=== PATIENT | male | born 1935 | race Caucasian/White ===

== ENCOUNTER 2019-12-21 19:49 | Emergency (ER) | payer MEDICARE ==
[~2019-12-21] VITALS: Ht 170.2 cm; Wt 81.7 kg
[2019-12-21] MEDS ORDERED: Aspir 8181 MG PO (22:00)
[2019-12-21] MEDS ORDERED: GABA300 PO (22:04)
[2019-12-21] MEDS ORDERED: METO100 PO (22:05)
[2019-12-21] MEDS ORDERED: Coumadin2 MG PO (22:06)
[2019-12-21 23:16] LABS: Source, Urine Clean Catch
[2019-12-21 23:37] LABS: Blood, Urine 5+ (Neg); Glucose Qualitative, Urine Neg (Neg); Ketones, Urine 2+ (Neg); Leukocyte Esterase, Urine 2+ (Neg); Nitrite, Urine Pos (Neg); Protein, Urine 2+ (Neg); Urobilinogen, Urine 1+ (Normal)
[2019-12-21 23:46] LABS: Bilirubin, Urine 1+ (Neg)
[2019-12-21 23:47] LABS: Appearance, Urine Hazy (Clear); Color, Urine Yellow (P-Yellow)
[2019-12-21 23:49] LABS: Bacteria Mod /hpf; Mucus Light (0-Heavy); Red Blood Cells, Urine 50-100 /hpf (0-2); Squamous Epithelial Cells Few /hpf (Few)
[2019-12-22] MEDS ORDERED: CEFP200 PO (00:01)
== END 2019-12-22 00:45 | disposition home or self-care (01) ==
LOC: ER 19:49
PROVIDERS: Emergency Medicine
DX: N39.0 Urinary tract infection, site not specified (principal); D72.829 Elevated white blood cell count, unspecified; R79.89 Other specified abnormal findings of blood chemistry; N40.0 Benign prostatic hyperplasia without lower urinary tract symptoms; Z79.82 Long term (current) use of aspirin
CPT/HCPCS: 36415; 71046; 81001; 84484; 87086; 93005; 93010; 96365; 99285-25; J0696

== ENCOUNTER → 2019-12-21 | Outpatient (CLI) | payer MEDICARE ==
[~2019-12-21] MED LIST: Aspir 8181 MG PO; CEFP200 PO; Coumadin2 MG PO; GABA300 PO; METO100 PO
[2019-12-21 18:51] LABS: BASOPHILS ABSOLUTE AUTO 0.03 K/mm3 (0.00-0.23); BASOPHILS PERCENT AUTO 0 % (0-2); EOSINOPHILS ABSOLUTE AUTO 0.14 K/mm3 (0.00-0.68); EOSINOPHILS PERCENT AUTO 1 % (0-6); Hematocrit 36.8 % (37.0-53.0); Hemoglobin 12.5 g/dL (13.5-17.5); IMMATURE GRAN ABSOLUTE AUTO 0.06 K/mm3 (0.00-0.10); IMMATURE GRAN PERCENT AUTO 0 % (0-1); LYMPHOCYTES ABSOLUTE AUTO 1.82 K/mm3 (0.84-5.20); LYMPHOCYTES PERCENT AUTO 13 % (21-46); MONOCYTES ABSOLUTE AUTO 0.97 K/mm3 (0.16-1.47); MONOCYTES PERCENT AUTO 7 % (4-13); Mean Corpuscular HGB 31.8 pg (26.0-34.0); Mean Corpuscular Volume 94 fL (80-100); Mean Platelet Volume 10.7 fL (9.1-12.4); NEUTROPHILS ABSOLUTE AUTO 11.58 K/mm3 (1.96-9.15); NEUTROPHILS PERCENT AUTO 79 % (41-73); Platelet Count 193 K/mm3 (150-400); RDW Standard Deviation 47.6 fL (35.1-46.3); Red Blood Cell Count 3.93 M/mm3 (4.30-5.90)
[2019-12-21 19:01] LABS: Albumin, Blood 3.9 g/dL (3.4-5.0); Bilirubin, Total 0.9 mg/dL (0.1-1.0); Bun/Creatinine Ratio 12.3 (12.0-20.0); Calcium, Blood 8.6 mg/dL (8.5-10.1); Creatinine, Blood 1.54 mg/dL (0.60-1.20); Potassium, Blood 4.4 mmol/L (3.5-5.5); Total Protein, Blood 7.9 g/dL (6.4-8.2)
== END ==
LOC: LAB EV 18:46 → LAB SHORT 18:46
PROVIDERS: Emergency Medicine
DX: R50.9 Fever, unspecified (principal)
CPT/HCPCS: 80053; 85025; 87040

== ENCOUNTER → 2020-09-04 | Outpatient (CLI) | payer MEDICARE | END | disposition home or self-care (01) | LOC: LAB 10:44 → LAB SHORT 10:44 | DX: N39.0 Urinary tract infection, site not specified (principal) | CPT/HCPCS: 87086 ==

== ENCOUNTER 2021-08-16 03:07 | Emergency (ER) | payer MEDICARE ==
[~2021-08-16] VITALS: Ht 170.2 cm; Wt 75.8 kg
[2021-08-16 04:38] LABS: Source, Urine Clean Catch
[2021-08-16 04:40] LABS: Bilirubin, Urine Neg (Neg); Blood, Urine 4+ (Neg); Glucose Qualitative, Urine Neg (Neg); Ketones, Urine Neg (Neg); Leukocyte Esterase, Urine 3+ (Neg); Nitrite, Urine Pos (Neg); Protein, Urine 2+ (Neg); Urobilinogen, Urine NORM (Normal)
[2021-08-16 04:43] LABS: Appearance, Urine Cloudy (Clear); Color, Urine Yellow (P-Yellow)
[2021-08-16 04:52] LABS: Bacteria Many /hpf; Red Blood Cells, Urine 0-2 /hpf (0-2); Squamous Epithelial Cells Rare /hpf (Few); White Blood Cells, Urine TNTC /hpf (0-5)
[2021-08-16] MEDS ORDERED: CEFD300 PO (05:34)
== END 2021-08-16 06:15 | disposition home or self-care (01) ==
LOC: ER 03:07
PROVIDERS: Emergency Medicine
DX: N39.0 Urinary tract infection, site not specified (principal); Z79.82 Long term (current) use of aspirin; Z79.899 Other long term (current) drug therapy; Z79.01 Long term (current) use of anticoagulants
CPT/HCPCS: 51701; 51798; 81001; 87077; 87086; 87186; 99283-25; A9270

== ENCOUNTER 2021-11-22 05:44 | Emergency (ER) | payer MEDICARE ==
[~2021-11-22] VITALS: Ht 170.2 cm; Wt 81.7 kg
[~2021-11-22 05:44] MED LIST changes: +CEFD300 PO
[2021-11-22 07:52] LABS: Base Excess Venous -0.9 mmol/L; Bicarbonate Venous 23.6 mmol/L (24.0-30.0); PCO2 Venous 37.3 mmHg (38-42); PO2 Venous 48.8 mmHg (38-42); pH Blood Venous 7.41 (7.34-7.37)
[2021-11-22 07:52] LABS: Anion Gap 8 mmol/L (6-16); BASOPHILS ABSOLUTE AUTO 0.03 K/mm3 (0.00-0.23); BASOPHILS PERCENT AUTO 0 % (0-2); Blood Urea Nitrogen 28 mg/dL (8-24); CO2, Blood 21 mmol/L (21-32); Calcium, Blood 8.6 mg/dL (8.5-10.1); Chloride, Blood 111 mmol/L (98-108); Creatinine, Blood 1.12 mg/dL (0.60-1.20); EOSINOPHILS ABSOLUTE AUTO 0.13 K/mm3 (0.00-0.68); EOSINOPHILS PERCENT AUTO 2 % (0-6); Glomerular Filtration Rate >60 (60-); Glucose, Blood 151 mg/dL (70-99); Hematocrit 32.6 % (37.0-53.0); Hemoglobin 10.7 g/dL (13.5-17.5); IMMATURE GRAN ABSOLUTE AUTO 0.01 K/mm3 (0.00-0.10); IMMATURE GRAN PERCENT AUTO 0 % (0-1); LYMPHOCYTES PERCENT AUTO 19 % (21-46); MONOCYTES ABSOLUTE AUTO 0.94 K/mm3 (0.16-1.47); MONOCYTES PERCENT AUTO 14 % (4-13); Magnesium, Blood 1.6 mg/dL (1.6-2.4); Mean Corpuscular HGB 30.4 pg (26.0-34.0); Mean Corpuscular HGB Conc 32.8 g/dL (31.5-36.5); Mean Corpuscular Volume 93 fL (80-100); Mean Platelet Volume 11.2 fL (9.1-12.4); NEUTROPHILS ABSOLUTE AUTO 4.28 K/mm3 (1.96-9.15); NEUTROPHILS PERCENT AUTO 64 % (41-73); Platelet Count 214 K/mm3 (150-400); Potassium, Blood 4.5 mmol/L (3.5-5.5); RDW Coefficient Variation 14.6 % (11.7-14.2); Red Blood Cell Count 3.52 M/mm3 (4.30-5.90); Sodium, Blood 140 mmol/L (136-145); White Blood Cell Count 6.69 K/mm3 (4.00-11.30)
[2021-11-22 08:03] LABS: Albumin, Blood 3.2 g/dL (3.4-5.0); Albumin/Globulin Ratio 0.8 (0.8-1.8); Bilirubin, Direct 0.1 mg/dL (0.0-0.3); Bilirubin, Indirect 0.5 mg/dL (0.1-0.7); Bilirubin, Total 0.6 mg/dL (0.1-1.0); Globulin, Blood 3.9 g/dL (2.2-4.0); Total Protein, Blood 7.1 g/dL (6.4-8.2)
[2021-11-22 08:30] LABS: Influenza A, PCR NEGATIVE (NEGATIVE); Influenza B, PCR NEGATIVE (NEGATIVE); Resp Syncytial Virus, PCR NEGATIVE (NEGATIVE); SARS-Cov-2 (COVID-19) PCR, MMC NEGATIVE (NEGATIVE)
[2021-11-22 09:22] LABS: Source, Urine Clean Catch
[2021-11-22 09:27] LABS: Appearance, Urine Clear (Clear); Bilirubin, Urine Neg (Neg); Blood, Urine 1+ (Neg); Color, Urine Yellow (P-Yellow); Glucose Qualitative, Urine 1+ (Neg); Ketones, Urine Neg (Neg); Leukocyte Esterase, Urine Neg (Neg); Nitrite, Urine Neg (Neg); Protein, Urine 1+ (Neg); Specific Gravity, Urine 1.015 (1.003-1.022); Urobilinogen, Urine 1+ (Normal)
[2021-11-22 09:50] LABS: Bacteria Rare /hpf; Squamous Epithelial Cells Few /hpf (Few); White Blood Cells, Urine 0-2 /hpf (0-5)
== END 2021-11-22 11:20 | disposition home or self-care (01) ==
LOC: ER 05:44
PROVIDERS: Student in an Organized Health Care Education/Training Program
DX: R06.02 Shortness of breath (principal); E86.0 Dehydration; R53.1 Weakness; Z79.82 Long term (current) use of aspirin; Z79.899 Other long term (current) drug therapy; Z79.01 Long term (current) use of anticoagulants; Z20.822 Contact with and (suspected) exposure to COVID-19
CPT/HCPCS: 0241U; 51798; 71046; 80048; 80076; 81001; 82803; 83690; 83735; 83880; 84484; 85025; 93005; 93010; 96374; 99284-25; A9270; J2405

== ENCOUNTER 2021-11-25 11:24 | Inpatient (IN) | payer OTHER ==
[~2021-11-25] VITALS: Ht 170.2 cm; Wt 79.7 kg
[2021-11-25 14:34] LABS: BASOPHILS ABSOLUTE AUTO 0.03 K/mm3 (0.00-0.23); BASOPHILS PERCENT AUTO 1 % (0-2); EOSINOPHILS ABSOLUTE AUTO 0.11 K/mm3 (0.00-0.68); EOSINOPHILS PERCENT AUTO 2 % (0-6); Hematocrit 43.2 % (37.0-53.0); Hemoglobin 14.6 g/dL (13.5-17.5); IMMATURE GRAN ABSOLUTE AUTO 0.03 K/mm3 (0.00-0.10); IMMATURE GRAN PERCENT AUTO 1 % (0-1); LYMPHOCYTES ABSOLUTE AUTO 1.45 K/mm3 (0.84-5.20); LYMPHOCYTES PERCENT AUTO 23 % (21-46); MONOCYTES ABSOLUTE AUTO 0.66 K/mm3 (0.16-1.47); MONOCYTES PERCENT AUTO 11 % (4-13); Mean Corpuscular HGB 30.5 pg (26.0-34.0); Mean Corpuscular HGB Conc 33.8 g/dL (31.5-36.5); Mean Corpuscular Volume 90 fL (80-100); Mean Platelet Volume 10.9 fL (9.1-12.4); NEUTROPHILS ABSOLUTE AUTO 3.92 K/mm3 (1.96-9.15); NEUTROPHILS PERCENT AUTO 63 % (41-73); Platelet Count 150 K/mm3 (150-400); RDW Coefficient Variation 14.7 % (11.7-14.2); RDW Standard Deviation 49.2 fL (35.1-46.3); Red Blood Cell Count 4.79 M/mm3 (4.30-5.90)
[2021-11-25] MEDS ORDERED: Flomax0.4 MG PO (14:50)
[2021-11-25] MEDS ORDERED: FINA5 PO (14:50)
[2021-11-25] MEDS ORDERED: PRAV20 PO (14:50)
[2021-11-25] MEDS ORDERED: LEVSOD25 PO (14:51)
[2021-11-25] MEDS ORDERED: METF500 PO (14:51)
[2021-11-25] MEDS ORDERED: OMEP20ER PO (14:51)
[2021-11-25 15:40] LABS: Influenza A, PCR NEGATIVE (NEGATIVE); Influenza B, PCR NEGATIVE (NEGATIVE); Resp Syncytial Virus, PCR NEGATIVE (NEGATIVE); SARS-Cov-2 (COVID-19) PCR, MMC NEGATIVE (NEGATIVE)
[2021-11-25 15:45] LABS: Albumin, Blood 3.1 g/dL (3.4-5.0); Albumin/Globulin Ratio 0.8 (0.8-1.8); Bilirubin, Total 0.8 mg/dL (0.1-1.0); Bun/Creatinine Ratio 20.3 (12.0-20.0); Calcium, Blood 8.4 mg/dL (8.5-10.1); Creatinine, Blood 1.23 mg/dL (0.60-1.20); Potassium, Blood 4.3 mmol/L (3.5-5.5); Total Protein, Blood 7.1 g/dL (6.4-8.2)
[2021-11-25 18:04] LABS: Bicarbonate Venous 21.4 mmol/L (24.0-30.0); PCO2 Venous 34.1 mmHg (38-42); PO2 Venous 54.5 mmHg (38-42)
[2021-11-25 18:07] LABS: International Normalized Ratio 1.65; Prothrombin Time Results 16.8 Sec (9.7-11.5)
[2021-11-26 01:12] LABS: Base Excess Venous -4.8 mmol/L; Bicarbonate Venous 19.6 mmol/L (24.0-30.0); PO2 Venous 30.4 mmHg (38-42)
[2021-11-26 01:12] LABS: BASOPHILS ABSOLUTE AUTO 0.03 K/mm3 (0.00-0.23); BASOPHILS PERCENT AUTO 0 % (0-2); EOSINOPHILS ABSOLUTE AUTO 0.01 K/mm3 (0.00-0.68); EOSINOPHILS PERCENT AUTO 0 % (0-6); Hematocrit 39.9 % (37.0-53.0); IMMATURE GRAN ABSOLUTE AUTO 0.04 K/mm3 (0.00-0.10); IMMATURE GRAN PERCENT AUTO 0 % (0-1); LYMPHOCYTES ABSOLUTE AUTO 1.34 K/mm3 (0.84-5.20); LYMPHOCYTES PERCENT AUTO 14 % (21-46); MONOCYTES ABSOLUTE AUTO 0.68 K/mm3 (0.16-1.47); MONOCYTES PERCENT AUTO 7 % (4-13); Mean Corpuscular HGB 30.5 pg (26.0-34.0); Mean Corpuscular HGB Conc 32.6 g/dL (31.5-36.5); Mean Corpuscular Volume 94 fL (80-100); Mean Platelet Volume 9.9 fL (9.1-12.4); NEUTROPHILS ABSOLUTE AUTO 7.48 K/mm3 (1.96-9.15); NEUTROPHILS PERCENT AUTO 78 % (41-73); Platelet Count 206 K/mm3 (150-400); RDW Coefficient Variation 14.9 % (11.7-14.2); RDW Standard Deviation 51.6 fL (35.1-46.3); Red Blood Cell Count 4.26 M/mm3 (4.30-5.90); White Blood Cell Count 9.58 K/mm3 (4.00-11.30)
[2021-11-26 01:33] LABS: Albumin, Blood 3.5 g/dL (3.4-5.0); Albumin/Globulin Ratio 0.7 (0.8-1.8); Bilirubin, Total 0.9 mg/dL (0.1-1.0); Bun/Creatinine Ratio 20.3 (12.0-20.0); Calcium, Blood 8.4 mg/dL (8.5-10.1); Creatinine, Blood 1.28 mg/dL (0.60-1.20); Globulin, Blood 4.7 g/dL (2.2-4.0); Total Protein, Blood 8.2 g/dL (6.4-8.2)
--- NOTE | 2021-11-26 05:24 | NUR ---
SHIFT SUMMARY: ED ADMIT ARRIVED ON RA, AMBUALTED TO BATHROOM SBA HAD BM. ASSESSMENT REVEALED COARSE CRACKELS T/O EXP AND INS WHEEZE, MOIST COUGH. DREW. HOME CPAP WHILE ASLEEP. PACEMAKER, TELE = 100% PACED. A&0X1-2. SCATTERED BRUISING, PALE. REDNESS TO GROIN AND PANNICULUS FOLD. POOR HISTORIAN, IS AT [place] HAS DEMENTIA. PATIENT PLACED HAD DREW AND REQUIRED 3L O2 TO RECOVER. CPAP PLACED BY RT AND REQUIRED 4L BLEED IN SAT >92%. PATIENT REMOVED CPAP STATING "I CANT BREATHE" DESAT INTO 60S. INCREASED WORK OF BREATHING, ACCESSORY MUSCLE USE, TACHYPNEA, SOUNDS MORE WET THEN INITAIL ASSESSMENT PLACED ON 5L. PATIENT SAT QUICKLY RECOVERED WORK OF BREATHING REMAINED. MD CALLED ORDER FOR LASIX RECEIVED AND ADMINSTERED. HOME THEATRE TECHNICIAN: PATIENT WITH INCONTIENT EPISODE OF STOOL. UNABLE TO TOLERATE HEAD FLAT TO PERFORM BREIF CHANGE. PATIENT WAS ASSISTED TO BS, 2 MAX ASSIST. QUICKLY EXPERINCED RESPRIATORY DISTRESS- WORK OF BREATHING INCREASED IN ADDITION TO PRIOR ASSESMENT, PATIENT IN NOW MOTTLING, WITH CYANOTIC LIPS, AND JVD NTOED. PATIENT IS EXTREMELY WEAK, COULD NOT HOLD SELF UP WHILE SITTING ON COMMODE HE BEGAN FALLING BACKWARS. NOT LOC. SLOW TO RESPOND. DYSPNEA SEVERITY INTERFERING WITH PATIENTS ABILITY TO ANSWER QUESTIONS. PATIENT PLACED ON HOME CPAP WITH 4L BLEED IN. NEW ORDERS OBTAINED. 0300 PATIENT STILL HAS NOT URINATED. PATIENT HAS A AUS, BUT PATIENT TOLD UPON ADMISSION THAT HE DOES NOT PUMP IT IT NEEDS TO BE REDONE BY HIS UROLOGIST. BLADDER SCAN REVEALED >1000 ML. PATIENT UNABLE TO FOLLOW COMMANDS. STAFF ABLE TO UTILIZE AUS AND GET >500ML OUT OF BLADDER. PVR 450ML. WILL ATTMEPT TO BOAZ HIS BLADDER AFAIN CLOSER TO SHIFT CHANGE. TMAX 101.8 TYLENOL PROVIDED.
--- NOTE | 2021-11-26 18:20 | NUR ---
SHIFT SUMMARY PATIENT DENIES PAIN AND NAUSEA. PATIENT SOB WITH ANY ACTIVITY, INCLUDING TALKING. PATIENT INCREASED TO 6L HIGH FLOW TO MAINTAIN SATS ABOVE 90%. PATIENT MODERATE 1P WITH FWW FOR TRANSFERS. PATIENT UNABLE TO URINATE. PATIENT FEELS NEED TO URINATE. THIS RN ATTEMPTED TO USE DEVICE TO HELP PATIENT URINATE. PATIENT HAS AN AUS. MULTIPLE ATTEMPTS, UNSUCCESSFUL. DR. IBRAHIM NOTIFIED. CALL PLACED TO PATIENT UROLOGIST. BLADDER SCAN THIS AFTERNOON SHOWED 1400ML IN BLADDER. DR. GARCIA NOTIFIED. UROLOGIST CALLED BACK. PER DR. GARCIA, UROLOGIST WANTED US TO TRY TO DEACTIVATE THE DEVICE AND PLACE JACOME. IF UNSUCCESSFUL, WILL NEED SUPRAPUBIC CATH PLACED. ATTEMPT TO DEACTIVATE BY MULTIPLE NURSES UNSUCCESSFUL. CONSULT PLACED TO DR. BLEVINS FOR SUPRAPUBIC CATH. PATIENT TO CT. PATIENT TAKEN TO SURGERY AT 1815. PATIENT HAS POOR PO INTAKE. PATIENT IS PLEASANT AND COOPERATIVE WITH CARE.
[2021-11-26 19:59] LABS: PCO2 Arterial 29.6 mmHg (35-45); PO2 Arterial 86.5 mmHg (80-100); pH Blood Arterial 7.37 (7.35-7.45)
[2021-11-26 20:31] LABS: Source, Urine Suprapubic Cath
[2021-11-26 20:33] LABS: Bilirubin, Urine Neg (Neg); Blood, Urine 5+ (Neg); Glucose Qualitative, Urine Neg (Neg); Ketones, Urine 1+ (Neg); Leukocyte Esterase, Urine Neg (Neg); Nitrite, Urine Neg (Neg); Protein, Urine 2+ (Neg); Specific Gravity, Urine 1.015 (1.003-1.022); Urobilinogen, Urine NORM (Normal)
[2021-11-26 20:40] LABS: Appearance, Urine Clear (Clear); Color, Urine Pale Yellow (P-Yellow)
[2021-11-26 20:42] LABS: Bacteria Rare /hpf; Squamous Epithelial Cells Rare /hpf (Few); White Blood Cells, Urine 0-2 /hpf (0-5)
--- NOTE | 2021-11-26 21:40 | NUR ---
ASSUMED CARE ASSUMED CARE OF PT AT 1999. PT HAD JUST ARRIVED TO ROOM FROM [facility]. PT WAS ON BIPAP. RESPIRATIONS 20-22. SATURATIONS ABOVE 95%. CHARGE NURSE NOTED THAT PT EARS MORE PINK THAN BEFORE. LUNG SOUNDS HAVE FINE CRACKLES AT THE BASES. CAPREFILL 4 SECONDS ON HANDS AND FEET. PT IS ASLEEP, DIFFICULT TO AROSE, IS NOT RESPONDING TO PAINFUL STIMULUS. PT BECOMES VERY STIFF WHEN ROLLED. BOTTOM IS RED BUT BLANCHABLE, TURNED ON SIDE. SUPRAPUBIC CATHETER SITE DRESSING C/D/I. EMPTIED 250 OF DARK LORY URINE. OR NURSE STATES THEY TOOK OUT OVER 1000 POST PROCEDURE. AND DAUGHTER SAW PT IN ROOM. THEY LEFT FOR THE NIGHT BUT WILL BE BACK IN THE AM. STATES THAT PT IS NORMALLY A/OX4 BUT HAS GOTTEN MORE CONFUSED DUE TO ILLNESS.
--- NOTE | 2021-11-27 01:30 | NUR ---
SHIFT UPDATE AT 0030, UPONS ASSESSMENT PT IS RIDGED AND HIS BROW WAS FURROWED. PT WAS MORE AWAKE AND WHEN ASKED IF HE WAS IN PAIN STATED "YES". HOSPILALIST WAS NOTIFIED AND REVEIWED CHART. PT IS MORE RELAXED AFTER PAIN MEDICATION ADMINISTRATION AND RESTING IN BED.
[2021-11-27 04:16] LABS: BASOPHILS ABSOLUTE AUTO 0.02 K/mm3 (0.00-0.23); BASOPHILS PERCENT AUTO 0 % (0-2); EOSINOPHILS PERCENT AUTO 0 % (0-6); Hematocrit 35.1 % (37.0-53.0); Hemoglobin 11.7 g/dL (13.5-17.5); Mean Corpuscular HGB 30.3 pg (26.0-34.0); Mean Corpuscular HGB Conc 33.3 g/dL (31.5-36.5); Mean Corpuscular Volume 91 fL (80-100); Mean Platelet Volume 10.4 fL (9.1-12.4); Platelet Count 171 K/mm3 (150-400); RDW Coefficient Variation 15.1 % (11.7-14.2); RDW Standard Deviation 50.8 fL (35.1-46.3); Red Blood Cell Count 3.86 M/mm3 (4.30-5.90); White Blood Cell Count 9.88 K/mm3 (4.00-11.30)
[2021-11-27 04:32] LABS: IMMATURE GRAN ABSOLUTE AUTO 0.03 K/mm3 (0.00-0.10); IMMATURE GRAN PERCENT AUTO 0 % (0-1); LYMPHOCYTES ABSOLUTE AUTO 1.41 K/mm3 (0.84-5.20); LYMPHOCYTES PERCENT AUTO 14 % (21-46); MONOCYTES ABSOLUTE AUTO 0.46 K/mm3 (0.16-1.47); MONOCYTES PERCENT AUTO 5 % (4-13); NEUTROPHILS ABSOLUTE AUTO 7.96 K/mm3 (1.96-9.15); NEUTROPHILS PERCENT AUTO 81 % (41-73)
[2021-11-27 04:35] LABS: Albumin, Blood 2.9 g/dL (3.4-5.0); Albumin/Globulin Ratio 0.7 (0.8-1.8); Bilirubin, Total 0.7 mg/dL (0.1-1.0); Bun/Creatinine Ratio 21.8 (12.0-20.0); Calcium, Blood 8.2 mg/dL (8.5-10.1); Creatinine, Blood 1.47 mg/dL (0.60-1.20); Globulin, Blood 4.3 g/dL (2.2-4.0); Potassium, Blood 4.6 mmol/L (3.5-5.5); Total Protein, Blood 7.2 g/dL (6.4-8.2)
--- NOTE | 2021-11-27 06:03 | NUR ---
SHIFT SUMMARY PT BECAME MORE WAKE T/O THE SHIFT. AT AROUND 0300 PT WS ABLE TO TALK IN COMPLETE SENTENCES AND HOLD A CONVERSATION. PT AWAOKE SCARED AND WAS REORIENTED. PT STATES HE IS FEELING MUCH BETTER AND IS PAIN FREE. PT SLEPT WIOTH THE BIPAP ON T/O THE NIGHT. CATHETER DRAINING WELL.
--- NOTE | 2021-11-27 12:07 | NUR ---
Spoke with Primary RN Elías, or manager Yoly and discussed case. Pt and family may benefit from discussion regarding code status. Pt resting in bed and is pleasantly confused. Pt's spouse Nazanin and Pt's daughter Vania at bedside. Engaged in therapeutic discussion regarding Pt's wishes for CPR. Educated on life sustaining measures including risk factors and implications of CPR. Pt's daughter Vania states thinking Pt probably would not want CPR or Intubation but would like to discuss further with her sister (Pt's daughter) Radha. Offered therapeutic listening as Vania reports Pt's spouse experiences memory issues and confusion. Vania reports her sibblings assist with decision making. Vania expresses appreciation and reports no other concerns at this time. Palliative Care will remain available.
--- NOTE | 2021-11-27 16:27 | NUR ---
SHIFT SUMMARY This morning the pt was able to answer orientation questions but as the morning went on he became increasingly confused. He was switched from the BIPAP to a high flow nasal canula and was able to take his PO pills with apple sauce as well as some bites of his breakfast. The doctor was notified of the change in mentation and dcd the gabapentin and ordered labs. His lactic acid came back elevated and Dr Isabel made changes to his antibiotics as reflected on the emar. We also collected a UA which was sent to the lab. He was not able to work with PT due to his confusion but he seemed to clear up enough to do quite a bit with OT. Although this did seem to tire him out and this afternoon his work of breathing increased and he asked to go back on the BIPAP. He has maintained his sats in the high 90's all day both on the BIPAP as well as the high flow nasal canula. The surgical dressing to his suprapubic catheter is CDI with no redness or swelling. He has good urine output that is dark yellow. Dr Garcia stopped by to his him today as well. He has had a low grade fever today and Dr Isabel was made aware of this finding as well. Palliative care was called to discuss the pt's code status and the family reports that they are leaning towards DNR but want to discuss with all the siblings before making a change, the daughter provided a copy of his advanced directive. He continues on IV ABO/fluids as ordered and is currently on the BIPAP. His family are at the bedside. They met with the primary care nurse practitioner today to discuss discharge planning. He is able to make his needs known at times but his family are good avocates for his needs as well. He has his call light in reach.
[2021-11-28 00:49] LABS: PCO2 Venous 29.9 mmHg (38-42); pH Blood Venous 7.45 (7.34-7.37)
[2021-11-28 00:50] LABS: Bicarbonate Venous 22.5 mmol/L (24.0-30.0)
[2021-11-28 00:59] LABS: BASOPHILS ABSOLUTE AUTO 0.01 K/mm3 (0.00-0.23); BASOPHILS PERCENT AUTO 0 % (0-2); EOSINOPHILS PERCENT AUTO 0 % (0-6); Hematocrit 33.9 % (37.0-53.0); Hemoglobin 11.3 g/dL (13.5-17.5); IMMATURE GRAN ABSOLUTE AUTO 0.07 K/mm3 (0.00-0.10); IMMATURE GRAN PERCENT AUTO 1 % (0-1); LYMPHOCYTES ABSOLUTE AUTO 1.28 K/mm3 (0.84-5.20); LYMPHOCYTES PERCENT AUTO 12 % (21-46); MONOCYTES ABSOLUTE AUTO 0.53 K/mm3 (0.16-1.47); MONOCYTES PERCENT AUTO 5 % (4-13); Mean Corpuscular HGB 30.3 pg (26.0-34.0); Mean Corpuscular HGB Conc 33.3 g/dL (31.5-36.5); Mean Corpuscular Volume 91 fL (80-100); Mean Platelet Volume 10.9 fL (9.1-12.4); NEUTROPHILS ABSOLUTE AUTO 8.67 K/mm3 (1.96-9.15); NEUTROPHILS PERCENT AUTO 82 % (41-73); Platelet Count 166 K/mm3 (150-400); RDW Coefficient Variation 15.3 % (11.7-14.2); Red Blood Cell Count 3.73 M/mm3 (4.30-5.90); White Blood Cell Count 10.56 K/mm3 (4.00-11.30)
[2021-11-28 01:19] LABS: Albumin, Blood 2.7 g/dL (3.4-5.0); Anion Gap 9 mmol/L (6-16); Blood Urea Nitrogen 32 mg/dL (8-24); Bun/Creatinine Ratio 22.7 (12.0-20.0); CO2, Blood 22 mmol/L (21-32); Chloride, Blood 110 mmol/L (98-108); Creatinine, Blood 1.41 mg/dL (0.60-1.20); Glomerular Filtration Rate 47 (60-); Glucose, Blood 213 mg/dL (70-99); Phosphorus, Blood 1.6 mg/dL (2.5-4.9); Potassium, Blood 4.2 mmol/L (3.5-5.5); Sodium, Blood 141 mmol/L (136-145)
--- NOTE | 2021-11-28 03:02 | NUR ---
UPDATE AT AROUND 0045 PT RESPIRATIONS BECAME MORE INCREASED AND LABORED. PT STATED THAT HE COULD NOT BREATH. RT CONSULTED AND SUGGESTED [facility] TO SEE IF PT WAS GETTING WORSE. HOSPITALIST AGREED. RT REVEIWED LAB AND SAID THAT THERE WAS NOTHING DIFFERENT TO DO. AT AROUND 0200 PT ATTEMPTED TO GET OUT OF BED BECUASE AGAIN, HE SAID THAT HE COULD NOT BREATH. PT LEGS WERE NOW MOTTLED AND PT RESPIRATIONS WERE IN THE 30S AGAIN. PT BP WAS ELEVATED. RT SUGGESTED THAT HOSPITALIST BE NOTIFED TO LOOK AT PT. DR SOMERS NOTIFIED AND SAID HE WOULD REVEIW CHART. PT RECEIVED BREATHING TREATMENT AND WAS DEEP SUCTIONED. PINK/RED SPUTUM CAME OUT. HOSPITALIST NOTIFED. AFTER REVEIWING AND CALLING THE FAMILY, SAID TO KEEP PT COMFORTABLE PER FAMILY WISHES. FAMIILY IN ROOM, PT STATES HE FEELS BETTER AFTER RECEIVING THE SUCTIONING BUT IS ANXIOUS. PT IS MORE CALM WITH FAMILY IN ROOM. ORDERED ATIVAN FOR PT COMFORT.
--- NOTE | 2021-11-28 05:53 | NUR ---
SHIFT SUMMARY HOSPITALIST YONIS CAME TO SEE PT AND FAMILY AT 0400. HE DISCUSSED PT CONDITION AND POSSIBLE OUTCOMES AND TREATMENT. FAMILY WAS INTERESTED IN HOSPICE SERVICES, DOCTOR [facility]DRED HOSPICE REFERAL AND SS REFERAL. FAMILY IS VERY UNDERSTANDING AND WANT PT TO BE COMFORTABLE. FAMILY IS CURRENTLY WITH PT. PT HAS BEEN RESTING COMFORTABLY SINCE FAMILY ARRIVED AND ATIVAN GIVEN FOR ANXIETY. RESPIRATIONS DECREASED AND MOTTLING FADING, PT STILL REMAINS ON BIPAP AND IS 00% PACED.
[2021-11-28 13:59] LABS: Albumin, Blood 2.7 g/dL (3.4-5.0); Anion Gap 10 mmol/L (6-16); Blood Urea Nitrogen 29 mg/dL (8-24); Bun/Creatinine Ratio 22.3 (12.0-20.0); CO2, Blood 23 mmol/L (21-32); Calcium, Blood 8.1 mg/dL (8.5-10.1); Chloride, Blood 109 mmol/L (98-108); Glomerular Filtration Rate 52 (60-); Glucose, Blood 207 mg/dL (70-99); Phosphorus, Blood 1.5 mg/dL (2.5-4.9); Potassium, Blood 3.8 mmol/L (3.5-5.5); Sodium, Blood 142 mmol/L (136-145)
--- NOTE | 2021-11-28 16:21 | NUR ---
SHIFT SUMMARY Pt awakes to his name and opens his eyes but he has not been oriented today. He has been dependent on the BIPAP and has not had any PO intake. The family has been at the bedside since 3 am this morning and have been waivering on transitioning to comfort care. As the day has progressed the pt has continued to need the BIPAP and has had anxiety. After speaking with the palliative care nurse the family have asked that we transition him to comfort care. The family remains at the bedside and call for help when needed.
--- NOTE | 2021-11-28 18:55 | NUR ---
Pt transitioned to comfort care today after spending the day with family. They were hopeful for abx and lasix to cause an improvement. However, it did not. They elected comfort care. Palliative to remain involved.
--- NOTE | 2021-11-29 02:49 | NUR ---
SHIFT SUMMARY FAMILY WAS PRESENT IN ROOM WHEN PT PASSSED AT 2325. PT PASSED PEACFULLY. FAMILY LEFT PT CPAP. [facility] OF [facility]IRLEY CAME TO LABORER DAIRY [employer]ARM OT AT 0245. CHARGE NURSE NOTFIED.
== END 2021-11-29 02:48 | DRG 193 ==
LOC: ER 11:24 → MEDS 11:25 → PCU 11-26 19:40
PROVIDERS: Emergency Medicine; Internal Medicine; Physician Assistant; ADMIT Internal Medicine
PROC: 0T9B30Z Drainage of Bladder with Drainage Device, Percutaneous Approach (ICD-10-PCS; principal; 2021-11-26)
PROC: BT101ZZ Fluoroscopy of Bladder using Low Osmolar Contrast (ICD-10-PCS; 2021-11-26)
PROC: 5A09457 Assistance with Respiratory Ventilation, 24-96 Consecutive Hours, Continuous Positive Airway Pressure (ICD-10-PCS; 2021-11-26)
DX: J18.9 Pneumonia, unspecified organism (principal); G93.41 Metabolic encephalopathy; J96.01 Acute respiratory failure with hypoxia; T83.191A Other mechanical complication of implanted urinary sphincter, initial encounter; N17.9 Acute kidney failure, unspecified; Z20.822 Contact with and (suspected) exposure to COVID-19; Z66 Do not resuscitate; Z51.5 Encounter for palliative care; N32.0 Bladder-neck obstruction; E11.22 Type 2 diabetes mellitus with diabetic chronic kidney disease; I12.9 Hypertensive chronic kidney disease with stage 1 through stage 4 chronic kidney disease, or unspecified chronic kidney disease; E78.5 Hyperlipidemia, unspecified; N18.30 Chronic kidney disease, stage 3 unspecified; R60.0 Localized edema; N40.0 Benign prostatic hyperplasia without lower urinary tract symptoms; E03.9 Hypothyroidism, unspecified; K21.9 Gastro-esophageal reflux disease without esophagitis; Z95.0 Presence of cardiac pacemaker; Z98.890 Other specified postprocedural states; Z79.82 Long term (current) use of aspirin; Z79.84 Long term (current) use of oral hypoglycemic drugs; Z79.01 Long term (current) use of anticoagulants; Z79.899 Other long term (current) drug therapy; Y73.2 Prosthetic and other implants, materials and accessory gastroenterology and urology devices associated with adverse incidents
CPT/HCPCS: 0241U; 31720; 36415; 36600; 51102; 51701; 51798; 71045; 71046; 74177; 76937; 80053; 80069; 81001; 82140; 82607; 82803; 82947; 83605; 83690; 83880; 84443; 85025; 85610; 87040; 87086; 92610; 94640; 94660; 94664; 94762; 96374; 96375; 97110; 97162; 97166; 97530; 99285-25; A9270; C1729; C1769; G0378; J0295; J0456; J0696; J1630; J1644; J1650; J1815; J1940; J2060; J2270; J3010; J3370; J7030; J7040; J7050; Q9967